=== PATIENT | female | born 1930 | race Hispanic/Latino ===

== ENCOUNTER 2019-10-11 11:57 | Emergency (ER) | payer OTHER ==
[2019-10-11] MEDS ORDERED: MORPHINE 2 MG/ML SYR ONE ×3 (12:42→14:46)
[2019-10-11] MEDS ORDERED: ONDANSETRON 4 MG/2 ML VIAL ONE (12:42)
--- NOTE | 2019-10-11 13:04 | RAD REPORT ---
EXAM DESCRIPTION: RAD - Forearm Right - 10/11/2019 12:56 pm CLINICAL HISTORY: Slip and fall, arm pain COMPARISON: None. FINDINGS: Transverse fracture is present in the distal right radial metaphysis. There is 5 mm of vernon chandrakant displacement of the distal fracture fragment with impaction as well. Fracture with minimal dorsal displacement of the distal ulna as well. Articular surfaces are not involved. No pathologic componen t. No other acute finding in the forearm. No acute elbow joint finding. Patient has advanced degenerative change at the trapezial first metacarpal articulation. No acute car pal bone finding. Soft tissue swelling is present around the fracture site. No foreign body. IMPRESSION: Transverse fractures of the distal right radius and ulna with dorsal displacement and im paction.
--- NOTE | 2019-10-11 13:06 | RAD REPORT ---
EXAM DESCRIPTION: RAD - Humerus Right - 10/11/2019 12:56 pm CLINICAL HISTORY: Slip and fall, arm pain COMPARISON: None. FINDINGS: No fracture is identified. No dislocation of the humeral head. Patient has advanced degene rative change at the shoulder joint. There is effacement of the acromial humeral joint space with thi nning of the acromion. Prominent AC joint degenerative changes are present. This is a pattern seen wi th degenerative changes and chronic rotator cuff tear. No pathologic component. No acute findings see n at the elbow joint. No foreign body or other soft tissue abnormality. IMPRESSION: Patient has advanced degenerative change at the shoulder joint as detailed. No fracture, dislocation or acute finding seen.
--- NOTE | 2019-10-11 13:06 | RAD REPORT ---
EXAM DESCRIPTION: RAD - Hip Right 2 View - 10/11/2019 12:55 pm CLINICAL HISTORY: Slip and fall, right hip pain COMPARISON: None. FINDINGS: AP and frog-leg views of the right hip were obtained. There is no fracture or dislocation . No AVN or focal femoral head abnormality. Degenerative change along the superior acetabular rim is very minimal for age. Arterial calcifications are present. No joint effusion or periarticular abnorm ality. IMPRESSION: Negative right hip examination for acute findings.
--- NOTE | 2019-10-11 13:07 | RAD REPORT ---
EXAM DESCRIPTION: RAD - Pelvis - 10/11/2019 12:53 pm CLINICAL HISTORY: Slip and fall, pelvic and hip pain COMPARISON: None. TECHNIQUE: AP imaging of the pelvis was obtained. FINDINGS: No fracture of the bony pelvis. No fracture, dislocation or other acute hip joint finding. No significant SI joint findings. Lower lumbar degenerative changes are present only partially imaged. Sacral ala are too obscured for optimal assessment. No soft tissue abnormality. IMPRESSION: No pelvic fracture seen. Sacral ala are obscured. No hip joint or proximal femur abnormalities.
--- NOTE | 2019-10-11 13:08 | RAD REPORT ---
EXAM DESCRIPTION: RAD - Hip Left 2 View - 10/11/2019 12:54 pm CLINICAL HISTORY: Slip and fall, left hip pain COMPARISON: None. FINDINGS: AP and frogleg views of the left hip were obtained. There is no fracture or dislocation. N o AVN or focal femoral head abnormality. Degenerative change along the superior acetabular rim is bharti y minimal for age. Arterial calcifications are present. There is tendon calcification headache greate r trochanter insertion site. No joint effusion or periarticular soft tissue abnormality. IMPRESSION: Negative left hip examination for acute or significant findings. Minimal degenerative ch anges are present.
--- NOTE | 2019-10-11 14:19 | ER ---
Nurse's Notes [facility] Name: Lilo Martin Age: 89 yrs Sex: Female : 1930 Arrival Date: 10/11/2019 Time: 12:04 Bed 17 Private MD: Diagnosis: Acute, closed, transverse distal radius and ulnar fractures, mildly displaced Presentation: 10/11 12:04 Presenting complaint: EMS states: She slipped while getting off the couch, landing on aj1 her right side. Deformity noted to right wrist, splint in place by EMS. Patient reports pain to right wrist, right shoulder and bilateral hips. Denies hitting head. Care prior to arrival: None. Mechanism of Injury: Fall couch. Trauma event details: Injury occurred in the [facility]. 12:04 Acuity: JEREMY 3 aj1 12:04 Method Of Arrival: EMS: [facility] aj1 12:09 Transition of care: patient was not received from another setting of care. Onset of aj1 symptoms was October 11, 2019. Risk Assessment: Do you want to hurt yourself or someone else? Patient reports no desire to harm self or others. Initial Sepsis Screen: Does the patient meet any 2 criteria? No. Patient's initial sepsis screen is negative. Does the patient have a suspected source of infection? No. Patient's initial sepsis screen is negative. Trauma Activation: Not Applicable Physician: ED Physician; Name: ; Notified At: ; Arrived At: Physician: General Surgeon; Name: ; Notified At: ; Arrived At: Physician: Radiology; Name: ; Notified At: ; Arrived At: Physician: Respiratory; Name: ; Notified At: ; Arrived At: Physician: Lab; Name: ; Notified At: ; Arrived At: Historical: - Allergies: 12:10 PENICILLINS; aj1 - PMHx: 12:10 Diabetes - NIDDM; Hyperlipidemia; Hypertension; Dementia; aj1 - Immunization history:: Adult Immunizations up to date. - Social history:: Smoking status: Patient/guardian denies using tobacco. - Immunization history: Last tetanus immunization: - up to date. - Family history:: not pertinent. - Ebola Screening: : Patient denies travel to an Ebola-affected area in the 21 days before illness onset. - Hospitalizations: : No recent hospitalization is reported. Screenin:04 Abuse screen: Denies threats or abuse. Denies injuries from another. Nutritional aj1 screening: No deficits noted. Tuberculosis screening: No symptoms or risk factors identified. 15:26 Fall Risk None identified. bp Primary Survey: 12:04 NO uncontrolled hemorrhage observed. A: The patient is alert. Airway: patent. aj1 Breathing/Chest: Respiratory pattern: regular, Respiratory effort: spontaneous, unlabored. Circulation: Skin color: pink. Disability Alert. Exposure/Environment: There is no evidence of uncontrolled external bleeding. 15:26 Reassessment Breathing/Chest Respiratory pattern Regular Respiratory effort Spontaneous bp Unlabored. Assessment: 12:04 General: Appears in no apparent distress. uncomfortable, Behavior is calm, cooperative, aj1 appropriate for age. Pain: Complains of pain in left hip, right hip, anterior aspect of right shoulder, right wrist and posterior aspect of right shoulder. Neuro: Level of Consciousness is awake, alert, obeys commands, Oriented to person, place, time, situation, Speech is normal, Facial symmetry appears normal. EENT: No signs and/or symptoms were reported regarding the EENT system. Cardiovascular: Patient's skin is warm and dry. Respiratory: Airway is patent Respiratory effort is even, unlabored, Respiratory pattern is regular, symmetrical. GI: No signs and/or symptoms were reported involving the gastrointestinal system. : No signs and/or symptoms were reported regarding the genitourinary system. Derm: Skin is pink, warm \T\ dry. Musculoskeletal: Capillary refill < 3 seconds, in right fingers. Range of motion: limited in left hip, right shoulder, right wrist and right hip Bony deformity noted of right wrist. 13:00 Reassessment: PT RETURNED FROM RADIOLOGY. bp 14:51 Reassessment: D/C ON HOLD FOR SPLINT PLACEMENT. bp 15:23 Reassessment: PT D/C HOME VIA W/C WITH FAMILY, DX WITH TRANSVERSE DISTAL RADIUS AND bp ULNAR FX. Vital Signs: 12:11 BP 93 / 76; Pulse 81; Resp 18; Temp 98.2; Pulse Ox 100% on R/A; aj1 13:00 BP 103 / 93; Pulse 79; Resp 16; Pulse Ox 99% ; bp 14:00 BP 133 / 61; Pulse 76; Resp 16; Pulse Ox 99% ; bp 14:50 BP 129 / 54; Pulse 78; Resp 16; Pulse Ox 99% ; bp 15:23 BP 117 / 62; Pulse 74; Resp 16; Temp 98; Pulse Ox 99% ; bp [place] Coma Score: 12:04 Eye Response: spontaneous(4). Verbal Response: oriented(5). Motor Response: obeys aj1 commands(6). Total: 15. Trauma Score (Adult): 12:04 Eye Response: spontaneous(1); Verbal Response: oriented(1); Motor Response: obeys aj1 commands(2); Systolic BP: > 89 mm Hg(4); Respiratory Rate: 10 to 29 per min(4); Gigi Score: 15; Trauma Score: 12 ED Course: 12:04 Patient arrived in ED. aj1 12:04 Patient has correct armband on for positive identification. aj1 12:05 Saeid Gomez MD is Attending Physician. rn 12:06 Triage completed. aj1 12:09 Patient maintains SpO2 saturation greater than 95% on room air. Thermoregulation: warm aj1 blanket given to patient. 12:10 Arm band placed on. aj1 12:22 Sebas Encarnacion, MIKE is Primary Nurse. bp 12:54 XRAY Humerus RIGHT In Process Unspecified. EDMS 12:54 XRAY Forearm RIGHT In Process Unspecified. EDMS 12:54 XRAY Pelvis In Process Unspecified. EDMS 12:54 XRAY Hip RIGHT 2 view In Process Unspecified. EDMS 12:54 XRAY Hip LEFT 2 view In Process Unspecified. EDMS 13:00 Inserted saline lock: 22 gauge in left forearm, using aseptic technique. bp 14:17 Milan Youssef MD is Referral Physician. rn 15:08 Orthoglass splint: Sugar tong splint applied on right arm. Sling applied to right arm. 5 15:25 No provider procedures requiring assistance completed. IV discontinued, intact, bp bleeding controlled, No redness/swelling at site. Pressure dressing applied. Administered Medications: 13:00 Drug: morphine 2 mg Route: IVP; Site: left forearm; bp 13:38 Follow up: Response: Pain is decreased bp 13:00 Drug: Zofran 4 mg Route: IVP; Site: left forearm; bp 13:37 Follow up: Response: Nausea is decreased bp 13:35 Drug: morphine 2 mg Route: IVP; Site: left forearm; bp 13:37 Follow up: Response: Pain is decreased bp 14:40 Drug: morphine 2 mg Route: IVP; Site: left forearm; bp 15:29 Follow up: Response: No adverse reaction bp Intake: 15:27 PO: 0ml; Total: 0ml. bp Output: 15:27 Urine: 0ml; Total: 0ml. bp Outcome: 14:18 Discharge ordered by . rn 15:25 Discharged to home via wheelchair, with family. bp 15:25 Condition: stable 15:25 Discharge instructions given to patient, family, Instructed on discharge instructions, follow up and referral plans. medication usage, Demonstrated understanding of instructions, follow-up care, medications, splint care, Prescriptions given X 1. 15:28 Patient's length of stay was not longer than 2 hours. bp 15:30 Patient left the ED. bp Signatures: Dispatcher [employer] EDMS Thao Wolf, RN RN [email or web address] Saeid Gomez MD MD rn Martinez, [facility] Sebas Encarnacion RN RN bp
--- NOTE | 2019-10-11 14:19 | EDPHYS ---
Physician Documentation [facility] Name: Lilo Martin Age: 89 yrs Sex: Female : 1930 Arrival Date: 10/11/2019 Time: 12:04 Bed 17 Private MD: ED Physician Saeid Gomez HPI: 10/11 12:09 This 89 yrs old Female presents to ER via EMS with complaints of Fall Injury. rn 12:09 Details of fall: The patient fell from seated position. Onset: The symptoms/episode rn began/occurred just prior to arrival. Associated injuries: The patient sustained right arm and both hips. Severity of symptoms: At their worst the symptoms were moderate, in the emergency department the symptoms are unchanged. The patient has not experienced similar symptoms in the past. Reports was getting up to answer phone, fell forward, protected head with right arm, hit floor, no head injury or LOC, remembers all events, no blood thinners. reports pain to right shoulder and wrist. Denies other injuries. . Historical: - Allergies: 12:10 PENICILLINS; aj1 - PMHx: 12:10 Diabetes - NIDDM; Hyperlipidemia; Hypertension; Dementia; aj1 - Immunization history:: Adult Immunizations up to date. - Social history:: Smoking status: Patient/guardian denies using tobacco. - Immunization history: Last tetanus immunization: - up to date. - Family history:: not pertinent. - Ebola Screening: : Patient denies travel to an Ebola-affected area in the 21 days before illness onset. - Hospitalizations: : No recent hospitalization is reported. ROS: 12:09 Constitutional: Negative for fever, chills, and weight loss, Eyes: Negative for injury, rn pain, redness, and discharge, Neck: Negative for injury, pain, and swelling, Cardiovascular: Negative for chest pain, palpitations, and edema, Respiratory: Negative for shortness of breath, cough, wheezing, and pleuritic chest pain, Abdomen/GI: Negative for abdominal pain, nausea, vomiting, diarrhea, and constipation, Back: Negative for injury and pain, MS/Extremity: + right shoulder and wrist pain Skin: Negative for injury, rash, and discoloration, Neuro: Negative for headache, weakness, numbness, tingling, and seizure. Exam: 12:09 Constitutional: This is a well developed, well nourished patient who is awake, alert, rn holding right arm passively flexed and in splint Head/Face: Normocephalic, atraumatic. ENT: No oral trauma Neck: No cervical midline tenderness Chest/axilla: Normal chest wall appearance and motion. Nontender with no deformity. No lesions are appreciated. Cardiovascular: Regular rate and rhythm. No pulse deficits. Respiratory: No increased work of breathing, no retractions or nasal flaring. Abdomen/GI: soft, non-tender Back: No spinal tenderness. MS/ Extremity: Pulses equal, no cyanosis. + tenderness right upper humerus and distal forearm. + mild painful ROM bilaterla hips without focal tenderness or deformity. Neuro: Awake and alert, GCS 15, oriented to person, place, time, and situation. Cranial nerves II-XII grossly intact. Motor strength 5/5 in all extremities. Sensory grossly intact. Vital Signs: 12:11 BP 93 / 76; Pulse 81; Resp 18; Temp 98.2; Pulse Ox 100% on R/A; aj1 13:00 BP 103 / 93; Pulse 79; Resp 16; Pulse Ox 99% ; bp 14:00 BP 133 / 61; Pulse 76; Resp 16; Pulse Ox 99% ; bp 14:50 BP 129 / 54; Pulse 78; Resp 16; Pulse Ox 99% ; bp 15:23 BP 117 / 62; Pulse 74; Resp 16; Temp 98; Pulse Ox 99% ; bp Gigi Coma Score: 12:04 Eye Response: spontaneous(4). Verbal Response: oriented(5). Motor Response: obeys aj1 commands(6). Total: 15. Trauma Score (Adult): 12:04 Eye Response: spontaneous(1); Verbal Response: oriented(1); Motor Response: obeys aj1 commands(2); Systolic BP: > 89 mm Hg(4); Respiratory Rate: 10 to 29 per min(4); [place] Score: 15; Trauma Score: 12 MDM: 12:05 Patient medically screened. rn 14:16 Differential diagnosis: contusion, fracture. Data reviewed: vital signs, nurses notes, rn radiologic studies, plain films, and as a result, I will discharge patient. Counseling: I had a detailed discussion with the patient and/or guardian regarding: the historical points, exam findings, and any diagnostic results supporting the discharge/admit diagnosis, radiology results, the need for outpatient follow up, to return to the emergency department if symptoms worsen or persist or if there are any questions or concerns that arise at home. Response to treatment: the patient's symptoms have mildly improved after treatment, and as a result, I will discharge patient. Special discussion: I discussed with the patient/guardian in detail that at this point there is no indication for admission to the hospital. It is understood, however, that if the symptoms persist or worsen the patient needs to return immediately for re-evaluation. Based on the history and exam findings, there is no indication for further emergent testing or inpatient evaluation. I discussed with the patient/guardian the need to see the orthopedic surgeon for further evaluation of the symptoms. ED course: Patient held in finger traps for approx 20 min, some manipulation attempted, patient tolerated OK, NV intact, will splint and dc home with pain meds with ortho f/u. . 10/11 12:06 Order name: XRAY Humerus RIGHT; Complete Time: 13:18 rn 10/11 12:06 Order name: XRAY Forearm RIGHT; Complete Time: 13:18 rn 10/11 12:06 Order name: XRAY Pelvis; Complete Time: 13:18 rn 10/11 12:06 Order name: XRAY Hip RIGHT 2 view; Complete Time: 13:18 rn 10/11 12:06 Order name: XRAY Hip LEFT 2 view; Complete Time: 13:18 rn 10/11 12:06 Order name: IV Start; Complete Time: 13:09 rn 10/11 13:18 Order name: Misc. Order: Place in finger traps with 5 lbs weight; Complete Time: 13:38 rn 10/11 14:16 Order name: Splint - Sugar Tong - Forearm; Complete Time: 15:23 rn Administered Medications: 13:00 Drug: morphine 2 mg Route: IVP; Site: left forearm; bp 13:38 Follow up: Response: Pain is decreased bp 13:00 Drug: Zofran 4 mg Route: IVP; Site: left forearm; bp 13:37 Follow up: Response: Nausea is decreased bp 13:35 Drug: morphine 2 mg Route: IVP; Site: left forearm; bp 13:37 Follow up: Response: Pain is decreased bp 14:40 Drug: morphine 2 mg Route: IVP; Site: left forearm; bp 15:29 Follow up: Response: No adverse reaction bp Disposition: 10/11/19 14:18 Discharged to Home. Impression: Acute, closed, transverse distal radius and ulnar fractures, mildly displaced. - Condition is Stable. - Discharge Instructions: Cast or Splint Care, Adult, Wrist Fracture Treated With Immobilization, Wrist Splint. - Prescriptions for Tylenol- Codeine #3 300-30 mg Oral Tablet - take 1 tablet by ORAL route every 6-8 hours As needed; 20 tablet. - Medication Reconciliation Form, Thank You Letter, Antibiotic Education, Prescription Opioid Use form. - Follow up: Milan Youssef MD; When: 2 - 3 days; Reason: Recheck today's complaints, Re-evaluation by your physician. - Problem is new. - Symptoms have improved. Signatures: Dispatcher [employer] EDThao Collado RN RN aj1 Saeid Gomez MD MD rn Peltier, Brian, RN RN bp Corrections: (The following items were deleted from the chart) 15:30 14:18 10/11/2019 14:18 Discharged to Home. Impression: Acute, closed, transverse distal bp radius and ulnar fractures, mildly displaced. Condition is Stable. Forms are Medication Reconciliation Form, Thank You Letter, Antibiotic Education, Prescription Opioid Use. Follow up: Milan Youssef; When: 2 - 3 days; Reason: Recheck today's complaints, Re-evaluation by your physician. Problem is new. Symptoms have improved. rn
[2019-10-11 15:41] VITALS: O2SAT 99
[2019-10-11 15:46] VITALS: BP 117/62; TEMP 98
== END 2019-10-11 15:30 | disposition home or self-care (01) ==
LOC: ER 11:57
PROC: 2W3CX1Z Immobilization of Right Lower Arm using Splint (ICD-10-PCS; principal; 2019-10-11)
DX: S52.501A Unspecified fracture of the lower end of right radius, initial encounter for closed fracture (principal); S52.601A Unspecified fracture of lower end of right ulna, initial encounter for closed fracture; W08.XXXA Fall from other furniture, initial encounter; Y93.9 Activity, unspecified; Y92.9 Unspecified place or not applicable
CPT/HCPCS: 72170; 73502 ×2; 73090; 73060; 96375; 96374; 99284; 29125; J2270 ×3; J2405

== ENCOUNTER 2019-11-30 00:09 | Emergency (ER) | payer OTHER ==
--- OUTSIDE RECORDS SUMMARY | 2019-11-30 00:11 | XMS REPORT ---
:1930 [facility] [address] [place] [address] Dr. Chakraborty [address] [place] [id number] Care Team Providers Name Role Phone Unavailable Unavailable Unavailable Problems This patient has no known problems. Allergies, Adverse Reactions, Alerts This patient has no known allergies or adverse reactions. Medications This patient has no known medications.
[2019-11-30] MEDS ORDERED: TETANUS & DIPHTHERIA TOX,ADULT 0.5 ML VIAL ONE (00:46)
[2019-11-30] MEDS ORDERED: LIDOCAINE 1% MPF 30 ML VIAL ONE (01:12)
--- NOTE | 2019-11-30 01:41 | ER ---
Nurse's Notes [facility] Name: Lilo Martin Age: 89 yrs Sex: Female : 1930 Arrival Date: 11/30/2019 Time: 00:12 Bed 26 Private MD: Chirag Castro Diagnosis: Laceration left forearm. S/P Fall Presentation: 11/30 00:27 Presenting complaint: daughter states she received call that pt had fallen and received bb large lac to left forearm denies LOC. Care prior to arrival: None. Mechanism of Injury: Fall from standing position. Trauma event details: Injury occurred in the [facility], Injury occurred: at home. Injury occurred: November 30, 2019. 00:27 Acuity: JEREMY 3 bb 00:27 Method Of Arrival: Wheelchair bb 00:31 Transition of care: patient was not received from another setting of care. Onset of bb symptoms was November 30, 2019. Risk Assessment: Do you want to hurt yourself or someone else? Patient reports no desire to harm self or others. Initial Sepsis Screen: Does the patient meet any 2 criteria? No. Patient's initial sepsis screen is negative. Does the patient have a suspected source of infection? No. Patient's initial sepsis screen is negative. Trauma Activation: Physician: ED Physician; Name: Tyrese; Notified At: 00:25; Arrived At: 00:25 Physician: General Surgeon; Name: ; Notified At: 00:25; Arrived At: Physician: Radiology; Name: ; Notified At: 00:25; Arrived At: Physician: Respiratory; Name: ; Notified At: 00:25; Arrived At: Physician: Lab; Name: ; Notified At: 00:25; Arrived At: Historical: - Allergies: 00:32 PENICILLINS; bb - Home Meds: 00:32 losartan Oral [Active]; Metformin Oral [Active]; bb 00:39 aspirin 81 mg Oral chew 1 tab once daily [Active]; Vesicare 5 mg oral tab 1 tab once rv daily [Active]; rosuvastatin 20 mg oral tab 1 tab once daily [Active]; metoprolol tartrate 50 mg Oral tab 1 tab 2 times per day [Active]; Klor-Con M20 20 mEq Oral TbTQ 1 tab once daily [Active]; omeprazole 20 mg Oral cpDR 1 cap once daily [Active]; Plavix 75 mg Oral tab 1 tab once daily [Active]; isosorbide mononitrate 30 mg Oral Tb24 1 tab once daily [Active]; furosemide 40 mg Oral tab 1 tab every other day [Active]; Vitamin D Oral daily [Active]; magnesium oxide 400 mg Oral tab 400 mg twice a day [Active]; Vitamin B-12 500 mcg Oral lozg 500 mcg daily [Active]; Vitamin B-6 100 mg Oral tab 100 mg daily [Active]; Iron CR Oral 65 mg daily [Active]; Vitamin C 1,000 mg Oral pwep 1,000 mg daily [Active]; - PMHx: 00:32 Dementia; Diabetes - NIDDM; Hyperlipidemia; Hypertension; bb - PSHx: 00:39 Hernia repair; Cholecystectomy; cataract sx; rv - Immunization history: Last tetanus immunization: unknown. - Social history:: Smoking status: Patient/guardian denies using tobacco. - Ebola Screening: : No symptoms or risks identified at this time. Screenin:27 Abuse screen: Denies threats or abuse. Tuberculosis screening: No symptoms or risk bb factors identified. 00:41 Nutritional screening: No deficits noted. Fall Risk None identified. rv Primary Survey: 00:27 NO uncontrolled hemorrhage observed. A: The patient is alert. Airway: patent. bb Breathing/Chest: Respiratory pattern: regular, Respiratory effort: spontaneous, unlabored. Circulation: Heart tones present. Disability Alert. Exposure/Environment: All clothing and personal items were removed. Forensic evidence collection is not deemed to be indicated at this time. Items placed in patient belonging bag. Assessment: 00:40 General: Appears in no apparent distress. Behavior is calm, cooperative. Pain: rv Complains of pain in left arm, right hip. Neuro: Level of Consciousness is awake, alert, obeys commands, Oriented to person, place, time, situation. Cardiovascular: Patient's skin is warm and dry. Respiratory: Airway is patent. Derm: Skin is fragile. Injury Description: Laceration sustained to left arm is clean, full thickness, 2.6 to 7.5 cm long, bleeding profusely, was sustained less than 30 minutes ago. Vital Signs: 00:27 BP 121 / 59; Pulse 73; Resp 20 S; Temp 98.1(O); Pulse Ox 100% on R/A; Weight 58.97 kg bb (R); Height 5 ft. 0 in. (152.40 cm) (R); 01:54 BP 119 / 62; Pulse 80; Resp 18; Pulse Ox 97% on R/A; rv 00:27 Body Mass Index 25.39 (58.97 kg, 152.40 cm) bb Flushing Coma Score: 00:27 Eye Response: spontaneous(4). Verbal Response: oriented(5). Motor Response: obeys bb commands(6). Total: 15. Trauma Score (Adult): 00:27 Eye Response: spontaneous(1); Verbal Response: oriented(1); Motor Response: obeys bb commands(2); Systolic BP: > 89 mm Hg(4); Respiratory Rate: 10 to 29 per min(4); Flushing Score: 15; Trauma Score: 12 ED Course: 00:12 Patient arrived in ED. es 00:12 Chirag Castro DO is Private Physician. es 00:13 Billy Khan, MIKE is Primary Nurse. rv 00:22 Chino Xiong MD is Attending Physician. pkl 00:27 Patient has correct armband on for positive identification. Placed in gown. Bed in low bb position. Call light in reach. Side rails up X2. Adult w/ patient. Family accompanied patient. 00:27 Patient maintains SpO2 saturation greater than 95% on room air. bb 00:29 Triage completed. bb 00:32 Arm band placed on Patient placed in an exam room, on a stretcher, on pulse oximetry. bb 00:33 Thermoregulation: warm blanket given to patient. bb 01:07 Forearm Left XRAY In Process Unspecified. EDMS 01:07 Hip Right 2 View XRAY In Process Unspecified. EDMS 01:39 Chirag Castro DO is Referral Physician. pkl 01:52 Assist provider with laceration repair on left arm that was between 7.6 to 12.5 cm rv using sutures. Set up tray. Performed by Chino Xiong MD Patient tolerated well. Patient did not have IV access during this emergency room visit. Administered Medications: 01:19 Drug: Tetanus-Diphtheria Toxoid Adult 0.5 ml {Diet Technician Registered: [employer]. Exp: rv 12/14/2021. Lot #: [id number]. } Route: IM; Site: right deltoid; 01:51 Follow up: Response: No adverse reaction rv Intake: 00:27 PO: 0ml; Total: 0ml. bb Outcome: 01:40 Discharge ordered by . sandra 01:53 Discharged to home via wheelchair, with family. rv 01:53 Condition: improved 01:53 Discharge instructions given to family, Instructed on discharge instructions, follow up and referral plans. wound care, Demonstrated understanding of instructions, follow-up care, wound care. 01:54 Patient left the ED. rv Signatures: Dispatcher [employer] Chino Anderson MD MD pkEmmy Salas Brenda, RN RN Billy Garcia, MIKE RN rv Corrections: (The following items were deleted from the chart) 01:54 01:52 No provider procedures requiring assistance completed. rv rv
--- NOTE | 2019-11-30 01:42 | EDPHYS ---
Physician Documentation [facility] Name: Lilo Martin Age: 89 yrs Sex: Female : 1930 Arrival Date: 11/30/2019 Time: 00:12 Bed 26 Private MD: Chirag Castro ED Physician Chino Xiong HPI: 11/30 00:33 This 89 yrs old Female presents to ER via Wheelchair with complaints of Fall pkl Injury, Arm Injury. 00:33 Details of fall: The patient fell from an upright position, while standing. Onset: The pkl symptoms/episode began/occurred just prior to arrival. Associated injuries: The patient sustained left forearm, laceration, 6 cm(s), pain right hip. Historical: - Allergies: 00:32 PENICILLINS; bb - Home Meds: 00:32 losartan Oral [Active]; Metformin Oral [Active]; bb 00:39 aspirin 81 mg Oral chew 1 tab once daily [Active]; Vesicare 5 mg oral tab 1 tab once rv daily [Active]; rosuvastatin 20 mg oral tab 1 tab once daily [Active]; metoprolol tartrate 50 mg Oral tab 1 tab 2 times per day [Active]; Klor-Con M20 20 mEq Oral TbTQ 1 tab once daily [Active]; omeprazole 20 mg Oral cpDR 1 cap once daily [Active]; Plavix 75 mg Oral tab 1 tab once daily [Active]; isosorbide mononitrate 30 mg Oral Tb24 1 tab once daily [Active]; furosemide 40 mg Oral tab 1 tab every other day [Active]; Vitamin D Oral daily [Active]; magnesium oxide 400 mg Oral tab 400 mg twice a day [Active]; Vitamin B-12 500 mcg Oral lozg 500 mcg daily [Active]; Vitamin B-6 100 mg Oral tab 100 mg daily [Active]; Iron CR Oral 65 mg daily [Active]; Vitamin C 1,000 mg Oral pwep 1,000 mg daily [Active]; - PMHx: 00:32 Dementia; Diabetes - NIDDM; Hyperlipidemia; Hypertension; bb - PSHx: 00:39 Hernia repair; Cholecystectomy; cataract sx; rv - Immunization history: Last tetanus immunization: unknown. - Social history:: Smoking status: Patient/guardian denies using tobacco. - Ebola Screening: : No symptoms or risks identified at this time. ROS: 00:33 Eyes: Negative for injury, pain, redness, and discharge, ENT: Negative for injury, pkl pain, and discharge, Neck: Negative for injury, pain, and swelling, Cardiovascular: Negative for chest pain, palpitations, and edema, Respiratory: Negative for shortness of breath, cough, wheezing, and pleuritic chest pain, Abdomen/GI: Negative for abdominal pain, nausea, vomiting, diarrhea, and constipation, Back: Negative for injury and pain, : Negative for injury, bleeding, discharge, and swelling. 00:33 MS/extremity: Positive for laceration, of the left forearm, pain right hip. 00:36 Neuro: Negative for altered mental status, loss of consciousness. pkl Exam: 00:36 Head/Face: Normocephalic, atraumatic. Eyes: Pupils equal round and reactive to light, pkl extra-ocular motions intact. Lids and lashes normal. Conjunctiva and sclera are non-icteric and not injected. Cornea within normal limits. Periorbital areas with no swelling, redness, or edema. ENT: Nares patent. No nasal discharge, no septal abnormalities noted. Tympanic membranes are normal and external auditory canals are clear. Oropharynx with no redness, swelling, or masses, exudates, or evidence of obstruction, uvula midline. Mucous membranes moist. Neck: Trachea midline, no thyromegaly or masses palpated, and no cervical lymphadenopathy. Supple, full range of motion without nuchal rigidity, or vertebral point tenderness. No Meningismus. Chest/axilla: Normal chest wall appearance and motion. Nontender with no deformity. No lesions are appreciated. Cardiovascular: Regular rate and rhythm with a normal S1 and S2. No gallops, murmurs, or rubs. Normal PMI, no JVD. No pulse deficits. Respiratory: Lungs have equal breath sounds bilaterally, clear to auscultation and percussion. No rales, rhonchi or wheezes noted. No increased work of breathing, no retractions or nasal flaring. Abdomen/GI: Soft, non-tender, with normal bowel sounds. No distension or tympany. No guarding or rebound. No evidence of tenderness throughout. Back: No spinal tenderness. No costovertebral tenderness. Full range of motion. Neuro: Awake and alert, GCS 15, oriented to person, place, time, and situation. Cranial nerves II-XII grossly intact. Motor strength 5/5 in all extremities. Sensory grossly intact. Cerebellar exam normal. Normal gait. 00:36 Musculoskeletal/extremity: Extremities: grossly normal except: noted in the laceration left forearm ( 6 cm ): noted in the right hip: pain. Vital Signs: 00:27 BP 121 / 59; Pulse 73; Resp 20 S; Temp 98.1(O); Pulse Ox 100% on R/A; Weight 58.97 kg bb (R); Height 5 ft. 0 in. (152.40 cm) (R); 01:54 BP 119 / 62; Pulse 80; Resp 18; Pulse Ox 97% on R/A; rv 00:27 Body Mass Index 25.39 (58.97 kg, 152.40 cm) bb Overton Coma Score: 00:27 Eye Response: spontaneous(4). Verbal Response: oriented(5). Motor Response: obeys bb commands(6). Total: 15. Trauma Score (Adult): 00:27 Eye Response: spontaneous(1); Verbal Response: oriented(1); Motor Response: obeys bb commands(2); Systolic BP: > 89 mm Hg(4); Respiratory Rate: 10 to 29 per min(4); Overton Score: 15; Trauma Score: 12 Laceration: 01:38 Wound Repair of 6cm ( 2.4in ) subcutaneous laceration to left forearm. Minimal bleeding pkl noted.. Distal neuro/vascular/tendon intact. Anesthesia: Topical anesthetic administered with 8 mls of 1% lidocaine. Wound prep: Extensive cleansing, Wound irrigation by me. Skin closed with 6 4-0 Prolene using simple sutures and sterile technique. Dressed with Neosporin, 4x4's, pressure dressing. Patient tolerated well. MDM: 00:22 Patient medically screened. pkl 01:38 Data reviewed: vital signs, nurses notes, radiologic studies, plain films. pkl 12:58 ED course: Via rubber mill operator (Stacie), left a message ([phone]) with Trung moreno to return for x-days of elbow. He indicted that he may try to bring her back in a few hours. 11/30 00:28 Order name: Forearm Left XRAY; Complete Time: 09:31 pkl 11/30 00:32 Order name: Hip Right 2 View XRAY; Complete Time: 09:31 pkl Administered Medications: 01:19 Drug: Tetanus-Diphtheria Toxoid Adult 0.5 ml {[employer] Dealer: [employer]. Exp: rv 12/14/2021. Lot #: [id number]. } Route: IM; Site: right deltoid; 01:51 Follow up: Response: No adverse reaction rv Disposition: 11/30/19 01:40 Discharged to Home. Impression: Laceration left forearm. S/P Fall. - Condition is Stable. - Medication Reconciliation Form, Thank You Letter, Antibiotic Education, Prescription Opioid Use form. - Follow up: Chirag Castro DO; When: 7 - 10 days; Reason: Re-evaluation by your physician. - Problem is new. - Symptoms have improved. Signatures: Dispatcher [employer] EDMS Chion Xiong MD MD pkl Rittger, Kevin, MD MD kdr Ballard, Brenda, RN RN bb Jere Lara PA PA [id number] Billy Khan RN RN rv Corrections: (The following items were deleted from the chart) 01:54 01:40 11/30/2019 01:40 Discharged to Home. Impression: Laceration left forearm. S/P rv Fall. Condition is Stable. Forms are Medication Reconciliation Form, Thank You Letter, Antibiotic Education, Prescription Opioid Use. Follow up: Chirag Castro; When: 7 - 10 days; Reason: Re-evaluation by your physician. Problem is new. Symptoms have improved. pkl
[2019-11-30 02:00] VITALS: TEMP 98.1
[2019-11-30 02:02] VITALS: BP 119/62; O2SAT 97
--- NOTE | 2019-11-30 08:45 | RAD REPORT ---
EXAM DESCRIPTION: RAD - Hip Right 2 View - 11/30/2019 1:06 am CLINICAL HISTORY: Fall, right hip pain COMPARISON: September 2019 FINDINGS: AP and frog-leg views of the right hip were obtained. There is no fracture or dislocation of the proximal right femur. No AVN or focal femoral head abnormality. Right hip joint degenerative change is very minimal for age. No periarticular abnormality. Arterial tree calcifications are presen t. Right SI joint degenerative changes mild. Sacral ala is partially obscured by bowel. Right naheed pelvis is intact. However, fracture of the left inferior pubic ramus is present and there is fracture of the left superior pubic ramus at the anterior column. IMPRESSION: Left-sided superior and inferior pubic rami fractures. Only a small portion of the left hemipelvis is imaged. The right hip and right hemipelvis show no acute findings.
--- NOTE | 2019-11-30 08:47 | RAD REPORT ---
EXAM DESCRIPTION: RAD - Forearm Left - 11/30/2019 1:07 am CLINICAL HISTORY: Fall, left forearm pain COMPARISON: None. FINDINGS: Bones are osteopenic. Severe degenerative changes present at the trapezial first metacarpa l articulation. Prominent degenerative changes are present in the wrist overall. No fracture confirme d on this study. There is a subtle or slight cortical irregularity near the articular surface of the radial head. This is not sufficient for fracture diagnosis. However, correlation can be made with any localizing pain symptoms. Dedicated right elbow films could be obtained. An elevated posterior fat p ad is not suspected. Arterial calcifications are present. No air or foreign body in the soft tissues. IMPRESSION: Osteopenic and degenerative changes are present. No fractures confirmed. Subtle cortical irregularity at the radial head is not sufficient for fracture diagnosis at this time . Correlation is needed with any pain symptoms localizing to the radial head region. A dedicated left e lbow study could be performed for better visualization a patient is locally symptomatic.
== END 2019-11-30 01:54 | disposition home or self-care (01) ==
LOC: ER 00:09
PROC: 0JQH0ZZ Repair Left Lower Arm Subcutaneous Tissue and Fascia, Open Approach (ICD-10-PCS; principal; 2019-11-30)
DX: S51.812A Laceration without foreign body of left forearm, initial encounter (principal); W19.XXXA Unspecified fall, initial encounter; Y93.89 Activity, other specified; Y92.9 Unspecified place or not applicable; Z23 Encounter for immunization; Z79.01 Long term (current) use of anticoagulants; Z79.82 Long term (current) use of aspirin; Z88.0 Allergy status to penicillin; I10 Essential (primary) hypertension; E78.5 Hyperlipidemia, unspecified; E11.9 Type 2 diabetes mellitus without complications; F03.90 Unspecified dementia, unspecified severity, without behavioral disturbance, psychotic disturbance, mood disturbance, and anxiety
CPT/HCPCS: 90471; 90714; 99284

== ENCOUNTER 2019-11-30 13:54 | Emergency (ER) | payer OTHER ==
--- OUTSIDE RECORDS SUMMARY | 2019-11-30 14:01 | XMS REPORT ---
:1930 [facility] Address [address] [place] [address] Dr. Ch[address] [place] [id number] Care Team Providers Name Role Phone Unavailable Unavailable Unavailable Problems This patient has no known problems. Allergies, Adverse Reactions, Alerts This patient has no known allergies or adverse reactions. Medications This patient has no known medications.
--- NOTE | 2019-11-30 14:54 | RAD REPORT ---
EXAM DESCRIPTION: RAD - Elbow Left 3 View - 11/30/2019 2:46 pm CLINICAL HISTORY: Abnormal forearm examination, possible radial head injury COMPARISON: Left elbow January 2017 FINDINGS: No radial head fracture identified on this examination. Contour changes to the radial head and neck are similar to comparison and may be the sequela of old radial head injury. The ulna-humeru s joint space shows prominent spurring along the medial margin. This is a similar pattern to comparis on. Lateral view shows no elevated posterior fat pad. Lateral view is not optimally positioned. No foreign body seen. IMPRESSION: No acute elbow joint finding. Radial head and neck show contour changes consistent with old fracture. This is a pattern stable from January 2017.
--- NOTE | 2019-11-30 15:45 | ER ---
Nurse's Notes [facility] Name: Lilo Martin Age: 89 yrs Sex: Female : 1930 Arrival Date: 11/30/2019 Time: 13:58 Bed 16 Private MD: Diagnosis: Left elbow pain Presentation: 11/30 14:07 Presenting complaint: Child states: was told to come back to the ER to f/u with an xray sv that was done early this morning after being seen here for a fall. Transition of care: patient was not received from another setting of care. Onset of symptoms was November 30, 2019. Care prior to arrival: None. 14:07 Method Of Arrival: Wheelchair sv 14:07 Acuity: JEREMY 3 sv 16:00 Risk Assessment: Do you want to hurt yourself or someone else? Patient reports no ch desire to harm self or others. Patient reports desire/thoughts of hurting themselves or someone else. Provider notified. 16:00 Initial Sepsis Screen: Does the patient meet any 2 criteria? No. Patient's initial ch sepsis screen is negative. Does the patient have a suspected source of infection? No. Patient's initial sepsis screen is negative. Triage Assessment: 16:00 General: Appears in no apparent distress. uncomfortable, Behavior is calm, cooperative, ch appropriate for age. Historical: - Allergies: 14:08 PENICILLINS; sv - PMHx: 14:08 Dementia; Hyperlipidemia; Diabetes - NIDDM; Hypertension; sv - PSHx: 14:08 Hernia repair; Cholecystectomy; cataract sx; sv - Immunization history:: Adult Immunizations up to date. - Social history:: Smoking status: Patient/guardian denies using tobacco. - Ebola Screening: : Patient negative for fever greater than or equal to 101.5 degrees Fahrenheit, and additional compatible Ebola Virus Disease symptoms Patient denies exposure to infectious person Patient denies travel to an Ebola-affected area in the 21 days before illness onset No symptoms or risks identified at this time. Screenin:40 Abuse screen: Denies threats or abuse. Denies injuries from another. Nutritional ch screening: No deficits noted. Tuberculosis screening: No symptoms or risk factors identified. Fall Risk Fall in past 12 months (25 points). Secondary diagnosis (15 points) IV access (20 points). Ambulatory Aid- Crutches/Cane/Walker (15 pts). Gait- Weak (10 pts.). Mental Status- Oriented to own ability (0 pts). Total Krishnamurthy Fall Scale indicates High Risk Score (45 or more points). Fall prevention measures have been instituted. Side Rails Up X 2 Placed Close to Nursing Station 1:1 Attendant Assigned Family Present and informed to notify staff if the need to leave the bedside As available patient and family educated on Fall Prevention Program and Strategies. Assessment: 14:30 Reassessment: Patient appears in no apparent distress at this time. Patient and/or ch family updated on plan of care and expected duration. Pain level reassessed. Pain: Complains of pain in abdomen, pelvis and left arm Pain currently is 8 out of 10 on a pain scale. Pain began suddenly. 14:30 Neuro: No deficits noted. Cardiovascular: Heart tones S1 S2 present Capillary refill < ch 3 seconds in bilateral fingers toes Clubbing of nail beds is absent Patient's skin is warm and dry. Pulses are all present. Edema is absent. Respiratory: Airway is patent Respiratory effort is even, unlabored, Breath sounds are coarse bilaterally. GI: Abdomen is round non-distended, Bowel sounds present X 4 quads. Abd is soft X 4 quads Abdomen is tender to palpation in right upper quadrant. : No signs and/or symptoms were reported regarding the genitourinary system. Derm: Skin is normal. Musculoskeletal: Capillary refill < 3 seconds, in bilateral fingers. toes. Range of motion: limited in left elbow and right hip Swelling present in left elbow pt reports pain in L elbow, R wrist, and pain with movement of Hips. 14:55 Reassessment: Patient appears in no apparent distress at this time. Patient and/or ch family updated on plan of care and expected duration. Pain level reassessed. Vital Signs: 14:09 BP 149 / 59; Pulse 86; Resp 15; Temp 98.3; Pulse Ox 100% ; sv 14:40 BP 119 / 65; Pulse 82; Resp 16; Temp 98.8; Pulse Ox 99% on R/A; ch 15:28 BP 122 / 63; Pulse 81; Resp 16; Temp 98.6(O); Pulse Ox 95% on R/A; mh5 16:00 BP 108 / 68; Pulse 79; Resp 14; Temp 98.6; Pulse Ox 99% on R/A; Pain 7/10; ch ED Course: 13:58 Patient arrived in ED. as 14:01 Edward Wood MD is Attending Physician. kdr 14:07 Triage completed. sv 14:08 Arm band placed on. sv 14:20 Lara Avitia, RN is Primary Nurse. ch 14:40 No apparent distress. Resting quietly. ch 14:40 No provider procedures requiring assistance completed. Patient did not have IV access ch during this emergency room visit. 14:48 Elbow Left 3 View XRAY In Process Unspecified. EDMS 15:29 Patient has correct armband on for positive identification. Placed in gown. Bed in low mh5 position. Call light in reach. Side rails up X2. Adult w/ patient. Warm blanket given. surveillance system monitor on. Pulse ox on. NIBP on. Administered Medications: 15:59 Drug: traMADol 50 mg Route: PO; ch Outcome: 15:43 Discharge ordered by MD. kdr 16:04 Discharged to home via wheelchair, with family. ch 16:04 Condition: stable 16:04 Discharge instructions given to patient, family, Instructed on discharge instructions, follow up and referral plans. medication usage, Demonstrated understanding of instructions, follow-up care, medications, Prescriptions given X 1. 16:07 Patient left the ED. Signatures: Dispatcher [employer] EDME Lara Avitia, Jacqueline Templeton RN, ch, RN RN Edward Wood MD MD kdr Martinez, Amelia as Martinez, Maria [facility] Corrections: (The following items were deleted from the chart) 17:36 16:40 BP 108 / 68; Pulse 79bpm; Resp 14bpm; Pulse Ox 99% RA; Temp 98.6F; Pain 7/10; ch ch
--- NOTE | 2019-11-30 15:45 | EDPHYS ---
Physician Documentation [facility] Name: Lilo Martin Age: 89 yrs Sex: Female : 1930 Arrival Date: 11/30/2019 Time: 13:58 Bed 16 Private MD: ED Physician Edward Wood HPI: 11/30 14:45 This 89 yrs old Female presents to ER via Wheelchair with complaints of call kdr back for imaging. 14:45 The patient was seen here last night s/p fall with laceration to left elbow. Radiology kdr over-read this morning revealed several stable pelvic fractures with possible left elbow fractures. The patient family was notified and invited to return for further imaging of the left elbow. The family was informed of the pelvic fractures, that they were stable and did bot require additional diagnostics at this time. Historical: - Allergies: 14:08 PENICILLINS; sv - PMHx: 14:08 Dementia; Hyperlipidemia; Diabetes - NIDDM; Hypertension; sv - PSHx: 14:08 Hernia repair; Cholecystectomy; cataract sx; sv - Immunization history:: Adult Immunizations up to date. - Social history:: Smoking status: Patient/guardian denies using tobacco. - Ebola Screening: : Patient negative for fever greater than or equal to 101.5 degrees Fahrenheit, and additional compatible Ebola Virus Disease symptoms Patient denies exposure to infectious person Patient denies travel to an Ebola-affected area in the 21 days before illness onset No symptoms or risks identified at this time. ROS: 16:26 Constitutional: Negative for fever, chills, and weight loss, Eyes: Negative for injury, kdr pain, redness, and discharge, ENT: Negative for injury, pain, and discharge, Neck: Negative for injury, pain, and swelling, Cardiovascular: Negative for chest pain, palpitations, and edema. 16:26 MS/extremity: Positive for injury or acute deformity, tenderness, of the left antecubital area and left elbow. Exam: 16:26 Constitutional: This is a well developed, well nourished patient who is awake, alert, kdr and in no acute distress. 16:26 Musculoskeletal/extremity: Extremities: grossly normal except: noted in the left antecubital area and left elbow: decreased ROM, pain. Vital Signs: 14:09 BP 149 / 59; Pulse 86; Resp 15; Temp 98.3; Pulse Ox 100% ; sv 14:40 BP 119 / 65; Pulse 82; Resp 16; Temp 98.8; Pulse Ox 99% on R/A; ch 15:28 BP 122 / 63; Pulse 81; Resp 16; Temp 98.6(O); Pulse Ox 95% on R/A; mh5 16:00 BP 108 / 68; Pulse 79; Resp 14; Temp 98.6; Pulse Ox 99% on R/A; Pain 7/10; ch MDM: 15:43 Patient medically screened. kdr 16:26 Data reviewed: vital signs, nurses notes, radiologic studies. Counseling: I had a kdr detailed discussion with the patient and/or guardian regarding: radiology results, the need for outpatient follow up. 11/30 14:01 Order name: Elbow Left 3 View XRAY; Complete Time: 15:32 kdr Administered Medications: 15:59 Drug: traMADol 50 mg Route: PO; Disposition: 11/30/19 15:43 Discharged to Home. Impression: Left elbow pain. - Condition is Stable. - Discharge Instructions: Simple Pelvic Fracture, Adult, Elbow Contusion, [id number]. - Prescriptions for Tramadol 50 mg Oral Tablet - take 1 tablet by ORAL route every 8 hours as needed; 12 tablet. - Medication Reconciliation Form, Thank You Letter form. - Follow up: Private Physician; When: 2 - 3 days; Reason: If symptoms return, Further diagnostic work-up, Recheck today's complaints, Continuance of care, Re-evaluation by your physician. - Problem is new. - Symptoms are unchanged. Signatures: Dispatcher [employer] EDLara Lutz RN RN ch Verde, Stephanie, RN RN Edward Wood MD MD kdr Corrections: (The following items were deleted from the chart) 16:07 15:43 11/30/2019 15:43 Discharged to Home. Impression: Left elbow pain. Condition is ch Stable. Forms are Medication Reconciliation Form, Thank You Letter, Antibiotic Education, Prescription Opioid Use. Follow up: Private Physician; When: 2 - 3 days; Reason: If symptoms return, Further diagnostic work-up, Recheck today's complaints, Continuance of care, Re-evaluation by your physician. Problem is new. Symptoms are unchanged. kdr
[2019-11-30] MEDS ORDERED: TRAMADOL HCL 50 MG TAB ONE (16:03)
[2019-11-30 16:18] VITALS: BP 122/63; TEMP 98.6; O2SAT 95
== END 2019-11-30 16:07 | disposition home or self-care (01) ==
LOC: ER 13:54
DX: M25.522 Pain in left elbow (principal); I10 Essential (primary) hypertension; F03.90 Unspecified dementia, unspecified severity, without behavioral disturbance, psychotic disturbance, mood disturbance, and anxiety; Z88.0 Allergy status to penicillin
CPT/HCPCS: 99284

== ENCOUNTER 2020-12-22 21:28 | Emergency (ER) | payer OTHER, SELFPAY ==
--- OUTSIDE RECORDS SUMMARY | 2020-12-22 21:30 | XMS REPORT | Continuity of Care Document ---
:1930 Author Organization [facility] t Address [facility] Chakraborty [address] [place] [id number] Care Team Providers Name Role Phone Unavailable Unavailable Unavailable Problems This patient has no known problems. Allergies, Adverse Reactions, Alerts This patient has no known allergies or adverse reactions. Medications This patient has no known medications. Procedures This patient has no known procedures. Results This patient has no known results.
--- NOTE | 2020-12-22 23:50 | ER ---
Nurse's Notes [facility] Name: Lilo Martin Age: 89 yrs Sex: Female : 1930 Arrival Date: 12/22/2020 Time: 21:31 Bed 15 Private MD: Chirag Castro Diagnosis: Multiple fractures of ribs, right side;Fall on same level from slipping, tripping and stumbling;Superficial injury of head Presentation: 12/22 21:53 Chief complaint: Parent and/or Guardian states: Daughter: She fell today around 1999, ca1 Slipped down on the couch off the floor. C/O L Ribcage pain, R hip pain. Denies LOC. Pt on Plavix 75mg OD. She said she hit her head on the floor. Coronavirus screen: Client denies travel out of the [place] in the last 14 days. At this time, the client does not indicate any symptoms associated with coronavirus-19. Ebola Screen: Patient negative for fever greater than or equal to 101.5 degrees Fahrenheit, and additional compatible Ebola Virus Disease symptoms Patient denies exposure to infectious person. Patient denies travel to an Ebola-affected area in the 21 days before illness onset. No symptoms or risks identified at this time. Initial Sepsis Screen: Does the patient meet any 2 criteria? No. Patient's initial sepsis screen is negative. Does the patient have a suspected source of infection? No. Patient's initial sepsis screen is negative. Risk Assessment: Do you want to hurt yourself or someone else? Patient reports no desire to harm self or others. Onset of symptoms was December 22, 2020. 21:53 Acuity: JEREMY 2 ca1 21:53 Method Of Arrival: Wheelchair ca1 22:00 Care prior to arrival: None. Mechanism of Injury: Fall. Trauma event details: Injury ea occurred in the [facility], Injury occurred: at home. Trauma Activation: Alert Physician: ED Physician; Name: ; Notified At: ; Arrived At: Physician: General Surgeon; Name: ; Notified At: ; Arrived At: Physician: Radiology; Name: ; Notified At: ; Arrived At: Physician: Respiratory; Name: ; Notified At: ; Arrived At: Physician: Lab; Name: ; Notified At: ; Arrived At: Trauma Activation: Alert Physician: ED Physician; Name: Dr. Ortiz; Notified At: 21:57; Arrived At: 21:57 Physician: General Surgeon; Name: N/A; Notified At: 21:57; Arrived At: Physician: Radiology; Name: Porfirio House Dwayne; Notified At: 21:57; Arrived At: 22:00 Physician: Respiratory; Name: N/A; Notified At: 21:57; Arrived At: Physician: Lab; Name: N/A; Notified At: 21:57; Arrived At: Historical: - Allergies: 21:58 PENICILLINS; ca1 - Home Meds: 12/23 00:43 aspirin 81 mg Oral chew 1 tab once daily [Active]; furosemide 40 mg Oral tab 1 tab zb Every other day [Active]; Iron CR Oral 65 mg daily [Active]; Vitamin C 1,000 mg Oral pwep 1000 mg daily [Active]; isosorbide mononitrate 30 mg Oral Tb24 1 tab once daily [Active]; Klor-Con M20 20 mEq Oral TbER 1 tab once daily [Active]; losartan Oral [Active]; magnesium oxide 400 mg Oral tab 400 mg twice a day [Active]; Metformin Oral [Active]; metoprolol tartrate 50 mg Oral tab 1 tab 2 times per day [Active]; omeprazole 20 mg Oral cpDR 1 cap once daily [Active]; Plavix 75 mg Oral tab 1 tab once daily [Active]; rosuvastatin 20 mg Oral tab 1 tab once daily [Active]; Vesicare 5 mg Oral tab 1 tab once daily [Active]; Vitamin B-12 500 mcg Oral lozg 500 mcg daily [Active]; Vitamin B-6 100 mg Oral tab 100 mg daily [Active]; Vitamin D Oral daily [Active]; - PMHx: 12/22 21:58 Dementia; Diabetes - NIDDM; Hyperlipidemia; Hypertension; ca1 - PSHx: 21:58 Hernia repair; Cholecystectomy; cataract sx; ca1 - Immunization history:: Pneumococcal vaccine is not up to date, Flu vaccine is not up to date. - Social history:: Smoking status: Patient denies any tobacco usage or history of. - Immunization history: Last tetanus immunization: unknown. Screenin:02 Abuse screen: Denies threats or abuse. Denies injuries from another. Nutritional zb screening: No deficits noted. Tuberculosis screening: No symptoms or risk factors identified. Fall Risk Fall in past 12 months (25 points). Secondary diagnosis (15 points) impaired mobility, No IV (0 pts). Ambulatory Aid- Crutches/Cane/Walker (15 pts). Gait- Weak (10 pts.). Mental Status- Oriented to own ability (0 pts). Total Krishnamurthy Fall Scale indicates High Risk Score (45 or more points). Fall prevention measures have been instituted. Side Rails Up X 2 Placed Close to Nursing Station Frequent Obs/Assessments Occuring As available patient and family educated on Fall Prevention Program and Strategies. Primary Survey: 22:00 NO uncontrolled hemorrhage observed. Breathing/Chest: Respiratory pattern: regular, ea Respiratory effort: spontaneous, unlabored. Circulation: Skin color: pink. Disability Alert. Exposure/Environment: A warming method has been applied: A warm blanket has been provided to the patient. 12/23 00:00 Reassessment Airway Airway Patent Breathing/Chest Respiratory pattern Regular ea Respiratory effort Spontaneous Unlabored Circulation Color [place] Disability Alert. Assessment: 12/22 22:00 General: Appears in no apparent distress. uncomfortable, Behavior is calm, cooperative, zb appropriate for age. Pain: Complains of pain in right leg and right hip and chest and right lateral posterior chest. Neuro: Level of Consciousness is awake, alert, obeys commands, Oriented to person, place, time, situation, Dining Services Director are equal bilaterally Pupils are PERRLA, Intact. Cardiovascular: Heart tones S1 S2 present Capillary refill < 3 seconds in bilateral Patient's skin is warm and dry. Respiratory: Airway is patent Respiratory effort is even, unlabored, Respiratory pattern is regular, symmetrical. GI: No signs and/or symptoms were reported involving the gastrointestinal system. : No signs and/or symptoms were reported regarding the genitourinary system. EENT: left eye blindness chronic condition. . Derm: Skin is intact, is healthy with good turgor, Skin is dry, Skin is normal, Skin temperature is warm. Musculoskeletal: Range of motion: limited in right hip. 23:00 Reassessment: Patient appears in no apparent distress at this time. Patient and/or zb family updated on plan of care and expected duration. Pain level reassessed. Patient is alert, oriented x 3, equal unlabored respirations, skin warm/dry/pink. patient waiting results. 12/23 00:04 Reassessment: Patient and/or family updated on plan of care and expected duration. Pain ea level reassessed. Patient is alert, oriented x 3, equal unlabored respirations, skin warm/dry/pink. Discharge instruction given to patient, verbalized the understanding of instruction. Pt left ED via wheelchair per family. Pt tolerating well. Vital Signs: 12/22 21:53 BP 134 / 57; Pulse 77; Resp 16 S; Temp 97.5(TE); Pulse Ox 99% on R/A; Weight 56.7 kg ca1 (R); Height 4 ft. 11 in. (149.86 cm) (R); Pain 3/10; 22:00 BP 132 / 60; Pulse 80; Resp 16; Pulse Ox 95% ; zb 23:00 BP 116 / 72; Pulse 65; Resp 18; Pulse Ox 98% on R/A; zb 12/23 00:00 BP 119 / 70; Pulse 80; Resp 18; Pulse Ox 97% on R/A; zb 12/22 21:53 Body Mass Index 25.25 (56.70 kg, 149.86 cm) ca1 [place] Coma Score: 12/22 22:00 Eye Response: spontaneous(4). Verbal Response: oriented(5). Motor Response: obeys ea commands(6). Total: 15. Trauma Score (Adult): 22:00 Eye Response: spontaneous(1); Verbal Response: oriented(1); Motor Response: obeys ea commands(2); Systolic BP: > 89 mm Hg(4); Respiratory Rate: 10 to 29 per min(4); [place] Score: 15; Trauma Score: 12 ED Course: 21:31 Patient arrived in ED. am2 21:34 Chirag Castro DO is Private Physician. am2 21:58 Triage completed. ca1 21:58 Arm band placed on right wrist. ca1 22:06 Nathaly Abdullahi RN is Primary Nurse. zb 22:09 James Harrison NP is PHCP. pm1 22:09 Sina Ortiz MD is Attending Physician. pm1 22:47 CT Head Brain wo Cont In Process Unspecified. EDMS 22:51 CT Chest Abdomen Pelvis W/O Contrast In Process Unspecified. EDMS 23:00 Patient maintains SpO2 saturation greater than 95% on room air. ea 23:33 Patient has correct armband on for positive identification. Bed in low position. Call zb light in reach. Side rails up X 1. Pulse ox on. NIBP on. Door closed. Noise minimized. Warm blanket given. 12/23 00:30 No provider procedures requiring assistance completed. Patient did not have IV access zb during this emergency room visit. 00:32 Thermoregulation: warm blanket given to patient. ea Administered Medications: 12/22 23:51 Drug: traMADol 25 mg Route: PO; zb 23:58 Follow up: Response: No adverse reaction ea 23:58 Drug: traMADol 25 mg Route: PO; ea 23:58 Follow up: Response: No adverse reaction ea Intake: 22:00 PO: 0ml; Total: 0ml. ea Outcome: 23:50 Discharge ordered by MD. pm1 12/23 00:12 Discharged to home ambulatory, via wheelchair. ea Condition: stable Discharge instructions given to patient, family, Instructed on discharge instructions, follow up and referral plans. medication usage, Demonstrated understanding of instructions, follow-up care, medications, Prescriptions given X 1. 00:12 Patient left the ED. ea Signatures: Dispatcher [employer] EDElli Vidal RN RN lp1 James Harrison, TASHI AIR CONTROL ELECTRONICS OPERATOR pm1 Joanne Cortes am2 Anne-Marie Coughlin RN RN ea Acob, Cheryl, RN RN ca1 Brown, Zipporah, RN RN zb Corrections: (The following items were deleted from the chart) 12/22 22:00 21:53 Chief complaint: Parent and/or Guardian states: Daughter: She fell today around ca1 1999, Slipped down on the couch off the floor. C/O L Ribcage pain, R hip pain. ca1
--- NOTE | 2020-12-22 23:51 | EDPHYS ---
Physician Documentation [facility] Name: Lilo Martin Age: 89 yrs Sex: Female : 1930 Arrival Date: 12/22/2020 Time: 21:31 Bed 15 Private MD: Chirag Castro ED Physician Sina Ortiz HPI: 12/22 22:32 This 89 yrs old Female presents to ER via Wheelchair with complaints of Fall pm1 Injury, right side pain. 22:32 Details of fall: The patient fell from seated position, couch. Onset: The pm1 symptoms/episode began/occurred today. Associated injuries: The patient sustained right lateral posterior chest, pain, right hip, pain. Patient has been able to walk after injury. Severity of symptoms: in the emergency department the symptoms are unchanged. Fell in the same manner last week. Patient getting off the couch and her feet slipped causing her to slide down the couch and land on the floor. Patient did not hit her head today. Reports she hit her head one week ago. No LOC or neck pain. The patient has not recently seen a physician, the patient's primary care provider is Dr. Castro. Historical: - Allergies: 21:58 PENICILLINS; ca1 - Home Meds: 12/23 00:43 aspirin 81 mg Oral chew 1 tab once daily [Active]; furosemide 40 mg Oral tab 1 tab zb Every other day [Active]; Iron CR Oral 65 mg daily [Active]; Vitamin C 1,000 mg Oral pwep 1000 mg daily [Active]; isosorbide mononitrate 30 mg Oral Tb24 1 tab once daily [Active]; Klor-Con M20 20 mEq Oral TbER 1 tab once daily [Active]; losartan Oral [Active]; magnesium oxide 400 mg Oral tab 400 mg twice a day [Active]; Metformin Oral [Active]; metoprolol tartrate 50 mg Oral tab 1 tab 2 times per day [Active]; omeprazole 20 mg Oral cpDR 1 cap once daily [Active]; Plavix 75 mg Oral tab 1 tab once daily [Active]; rosuvastatin 20 mg Oral tab 1 tab once daily [Active]; Vesicare 5 mg Oral tab 1 tab once daily [Active]; Vitamin B-12 500 mcg Oral lozg 500 mcg daily [Active]; Vitamin B-6 100 mg Oral tab 100 mg daily [Active]; Vitamin D Oral daily [Active]; - PMHx: 12/22 21:58 Dementia; Diabetes - NIDDM; Hyperlipidemia; Hypertension; ca1 - PSHx: 21:58 Hernia repair; Cholecystectomy; cataract sx; ca1 - Immunization history:: Pneumococcal vaccine is not up to date, Flu vaccine is not up to date. - Social history:: Smoking status: Patient denies any tobacco usage or history of. - Immunization history: Last tetanus immunization: unknown. ROS: 22:32 Constitutional: Negative for fever, chills, and weight loss, Neck: Negative for injury, pm1 pain, and swelling, Cardiovascular: Negative for chest pain, palpitations, and edema, Respiratory: Negative for shortness of breath, cough, wheezing, and pleuritic chest pain, Abdomen/GI: Negative for abdominal pain, nausea, vomiting, diarrhea, and constipation, Back: Negative for injury and pain. 22:32 Skin: Negative for injury, rash, and discoloration, Neuro: Negative for headache, weakness, numbness, tingling, and seizure. 22:32 MS/extremity: Positive for pain, of the right hip, Negative for decreased range of motion, deformity. Exam: 22:32 Constitutional: This is a well developed, well nourished patient who is awake, alert, pm1 and in no acute distress. Head/Face: Normocephalic, atraumatic. Neck: Trachea midline, no thyromegaly or masses palpated, and no cervical lymphadenopathy. Supple, full range of motion without nuchal rigidity, or vertebral point tenderness. No Meningismus. 22:32 Back: No spinal tenderness. No costovertebral tenderness. Full range of motion. Skin: Warm, dry with normal turgor. Normal color with no rashes, no lesions, and no evidence of cellulitis. MS/ Extremity: Pulses equal, no cyanosis. Neurovascular intact. Full, normal range of motion. No tenderness present to right or left hip. Passive range of motion with right and left hip does not cause any pain 22:32 Chest/axilla: Inspection: normal, Palpation: tenderness, of the right lateral posterior chest, that totally reproduces the patient's complaints. 22:32 Cardiovascular: Exam negative for acute changes, Rate: normal, Rhythm: regular, Pulses: no pulse deficits are appreciated. 22:32 Respiratory: Exam negative for acute changes, respiratory distress, shortness of breath. 22:32 Neuro: Exam negative for acute changes, Orientation: is normal, Mentation: is normal, Motor: is normal, moves all fours. Vital Signs: 21:53 BP 134 / 57; Pulse 77; Resp 16 S; Temp 97.5(TE); Pulse Ox 99% on R/A; Weight 56.7 kg ca1 (R); Height 4 ft. 11 in. (149.86 cm) (R); Pain 3/10; 22:00 BP 132 / 60; Pulse 80; Resp 16; Pulse Ox 95% ; zb 23:00 BP 116 / 72; Pulse 65; Resp 18; Pulse Ox 98% on R/A; zb 12/23 00:00 BP 119 / 70; Pulse 80; Resp 18; Pulse Ox 97% on R/A; zb 12/22 21:53 Body Mass Index 25.25 (56.70 kg, 149.86 cm) ca1 [place] Coma Score: 12/22 22:00 Eye Response: spontaneous(4). Verbal Response: oriented(5). Motor Response: obeys ea commands(6). Total: 15. Trauma Score (Adult): 22:00 Eye Response: spontaneous(1); Verbal Response: oriented(1); Motor Response: obeys ea commands(2); Systolic BP: > 89 mm Hg(4); Respiratory Rate: 10 to 29 per min(4); Gigi Score: 15; Trauma Score: 12 MDM: 22:10 Patient medically screened. pm1 23:47 Data reviewed: vital signs. Counseling: I had a detailed discussion with the patient pm1 and/or guardian regarding: the historical points, exam findings, and any diagnostic results supporting the discharge/admit diagnosis, radiology results, the need for outpatient follow up, to return to the emergency department if symptoms worsen or persist or if there are any questions or concerns that arise at home. 12/22 22:15 Order name: CT Chest Abdomen Pelvis W/O Contrast pm1 12/22 22:15 Order name: CT Head Brain wo Cont pm1 12/22 23:51 Order name: INCENTIVE SPIROMETRY pm1 Administered Medications: 23:51 Drug: traMADol 25 mg Route: PO; zb 23:58 Follow up: Response: No adverse reaction ea 23:58 Drug: traMADol 25 mg Route: PO; 23:58 Follow up: Response: No adverse reaction Disposition: 12/23 07:11 Co-signature as Attending Physician, Sina Ortiz MD. 7 Disposition: 12/22/20 23:50 Discharged to Home. Impression: Multiple fractures of ribs, right side, Fall on same level from slipping, tripping and stumbling, Superficial injury of head. - Condition is Stable. - Discharge Instructions: Head Injury, Adult, Fall Prevention in the Home, Rib Fracture, Incentive Spirometer. - Prescriptions for Tramadol 50 mg Oral Tablet - take 1 tablet by ORAL route every 8 hours as needed; 12 tablet. - Medication Reconciliation Form, Thank You Letter, Antibiotic Education, Prescription Opioid Use form. - Follow up: Emergency Department; When: As needed; Reason: Worsening of condition. Follow up: Private Physician; When: 2 - 3 days; Reason: Recheck today's complaints, Continuance of care, Re-evaluation by your physician. - Problem is new. - Symptoms have improved. Signatures: Dispatcher [employer] EDMS James Harrison, TASHI QUARTER BACKER pm1 Anne-Marie Coughlin RN RN ea Acob, Cheryl RN Sina Delaney MD MD [facility] Nathaly Abdullahi RN RN zb Corrections: (The following items were deleted from the chart) 12/22 23:56 23:50 12/22/2020 23:50 Discharged to Home. Impression: Multiple fractures of ribs, pm1 right side. Condition is Stable. Forms are Medication Reconciliation Form, Thank You Letter, Antibiotic Education, Prescription Opioid Use. Follow up: Emergency Department; When: As needed; Reason: Worsening of condition. Follow up: Private Physician; When: 2 - 3 days; Reason: Recheck today's complaints, Continuance of care, Re-evaluation by your physician. Problem is new. Symptoms have improved. pm1 12/23 00:12 12/22 23:56 12/22/2020 23:50 Discharged to Home. Impression: Multiple fractures of ea ribs, right side; Fall on same level from slipping, tripping and stumbling; Superficial injury of head. Condition is Stable. Discharge Instructions: Rib Fracture, Incentive Spirometer. Prescriptions for Tramadol 50 mg Oral Tablet - take 1 tablet by ORAL route every 8 hours as needed; 12 tablet. and Forms are Medication Reconciliation Form, Thank You Letter, Antibiotic Education, Prescription Opioid Use. Follow up: Emergency Department; When: As needed; Reason: Worsening of condition. Follow up: Private Physician; When: 2 - 3 days; Reason: Recheck today's complaints, Continuance of care, Re-evaluation by your physician. Problem is new. Symptoms have improved. pm1
[2020-12-23] MEDS ORDERED: TRAMADOL HCL 50 MG TAB ONE (00:04)
[2020-12-23 00:25] VITALS: BP 134/57; TEMP 97.5; O2SAT 99
--- NOTE | 2020-12-23 15:18 | RAD REPORT ---
EXAM DESCRIPTION: CT of the head without contrast CLINICAL HISTORY: HEADACHE COMPARISON: None available TECHNIQUE: Axial CT of the head obtained from the skull apex to the skull base without contrast. FINDINGS: No acute intracranial hemorrhage identified. No mass, mass effect, shift of the midline, a bnormal extra-axial fluid collection or CT evidence of acute ischemic change identified. The ventricu lar system and sulcal spaces are mildly enlarged compatible with mild cerebral atrophy. Scattered a reas of hypodensity throughout the supratentorial white matter are nonspecific and may be related to chronic small vessel ischemic change. The visualized paranasal sinuses and mastoid air cells are well aerated. No skull fracture identifi ed. Postoperative change of the left globe. Atherosclerotic calcification of the intracranial interna l carotid arteries. IMPRESSION: 1. No acute intracranial abnormality by CT criteria. This exam was performed according to our departmental dose-optimization program, which includes autom ated exposure control, adjustment of the mA and/or kV according to patient size and/or use of iterati ve reconstruction technique. Electronically signed by: Doyle Cruz 12/22/2020 11:00 PM SHUTTLE FIXER Due to temporary technical issues with the PACS/Fluency reporting system, reports are being signed by the in house radiologists without review as a courtesy to insure prompt reporting. The interpreting radiologist is fully responsible for the content of the report.
--- NOTE | 2020-12-23 15:19 | RAD REPORT ---
CLINICAL HISTORY: Right rib pain, right hip pain COMPARISON: None Available. TECHNIQUE: CT of the chest, abdomen and pelvis performed without IV contrast. Suboptimal evaluation of the soft tissues, solid organs, and vasculature due to lack of IV contrast. FINDINGS: Chest: Thyroid: No abnormalities of the visualized thyroid. Great Vessels: Great vessels have normal anatomic configuration. Thoracic Aorta: Atherosclerotic calcification of the thoracic aorta. Pulmonary arteries: The main pulmonary artery is not dilated. Heart: Heart is not enlarged. Prior median sternotomy. Coronary artery atherosclerosis. No significan t pericardial effusion. Lymph Nodes: No enlarged mediastinal lymph nodes identified. Esophagus: No abnormalities of the esophagus identified Other: No additional findings. Lungs: Bibasilar dependent atelectasis. No confluent airspace consolidation. Pleura: No pleural effusion or pneumothorax. Trachea/Airways: No abnormalities of the visualized trachea or airways. Abdomen: Liver: The liver has normal size and density. Gallbladder: Prior cholecystectomy. Spleen, Pancreas, and Adrenal Glands: The spleen, pancreas, and adrenal glands are unremarkable. Kidneys: No hydronephrosis or obstructing ureteral calculus. Vasculature: Aortoiliac atherosclerosis. IVC is unremarkable. Stomach: The stomach and duodenum have normal course. Other: No free intraperitoneal air. No free fluid or lymphadenopathy. Pelvis: Bladder: Right anterior bladder diverticulum. No wall thickening. Bowel: No dilated loops of large or small bowel. Scattered diverticula of the colon. Moderate amoun t of stool. Ventral hernia containing fat and a portion of nondilated transverse colon. Appendix: Not identified. Pelvis: Prior hysterectomy. Bones: Age-indeterminate compression deformities of the T12 and L1 vertebral bodies without definite CT evidence of acuity. 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 Minimally displaced fractures of the right posterior ninth through 11th ribs. Multilevel degenerative endplate spondylosis, disc height narrowing, and facet arthropathy throughout the spine. Osteoarthritic power e of the hips. Healed fractures of the left pubic rami. No hip fractures identified. IMPRESSION: 1. Minimally displaced fractures of the posterior right ninth through 11th ribs. 2. Age-indeterminate compression deformities of T12 and L1 without CT evidence of acuity. If the kristin ent has point tenderness at these locations MRI would provide additional characterization. 3. Minimal bilateral dependent atelectasis without pneumothorax identified. 4. Coronary artery atherosclerosis. 5. Diverticulosis without evidence of acute diverticulitis. This exam was performed according to our departmental dose-optimization program, which includes autom ated exposure control, adjustment of the mA and/or kV according to patient size and/or use of iterati ve reconstruction technique. Electronically signed by: Doyle Cruz 12/22/2020 11:13 PM SENSOR TECHNICIAN Due to temporary technical issues with the PACS/Fluency reporting system, reports are being signed by the in house radiologists without review as a courtesy to insure prompt reporting. The interpreting radiologist is fully responsible for the content of the report.
== END 2020-12-23 00:12 | disposition home or self-care (01) ==
LOC: ER 21:28
DX: S22.41XA Multiple fractures of ribs, right side, initial encounter for closed fracture (principal); S09.90XA Unspecified injury of head, initial encounter; M25.551 Pain in right hip; E11.9 Type 2 diabetes mellitus without complications; F03.90 Unspecified dementia, unspecified severity, without behavioral disturbance, psychotic disturbance, mood disturbance, and anxiety; E78.5 Hyperlipidemia, unspecified; I10 Essential (primary) hypertension; W08.XXXA Fall from other furniture, initial encounter
CPT/HCPCS: 70450; 71250; 74176; 99284; G0390